=== PATIENT | female | born 1985 | race Caucasian/White ===

== ENCOUNTER 2017-01-04 05:09 | Inpatient (IN) | payer OTHER ==
[~2017-01-04] VITALS: Ht 167.6 cm; Wt 70.3 kg
[2017-01-04] MEDS ORDERED: Sodium Chloride LOK Flush 10 mL Syringe IVFLUSH PRN (06:20)
[2017-01-04] MEDS ORDERED: Lactated Ringer's 1,000 ML IV PRN (06:20)
[2017-01-04] MEDS ORDERED: Methylergonovine 0.2 mg/mL Inj IM PRN (06:20)
[2017-01-04] MEDS ORDERED: Oxytocin 10 Unit/mL Inj IM PRN (06:20)
[2017-01-04] MEDS ORDERED: Hemorrhage Kit, Post Partum XX ONE (06:20)
[2017-01-04] MEDS ORDERED: Carboprost 250 mCg/mL Inj IM PRN (06:20)
[2017-01-04 10:04] LABS: Mean Corpuscular Hemoglobin 28.2 pg (27.0-35.0); Mean Corpuscular Volume 87.6 fL (81-100)
--- NOTE | 2017-01-04 13:26 | PCM.HPOB ---
Subjective Date of Service: Jan 04, 2017 Referring Provider: Admitting Physician: Oral Potter DO Primary Care Physician: Oral Potter DO Attending Physician: Oral Potter DO Chief Complaint Leaking fluids History of Present History of Present Illness 31-year-old SAB 2 at 39w1d by LMP and 8 week ultrasound presents leaking fluids. She notes a gush of clear fluids that began at 0200 today. She slowly began having contractions that developed after rupture of membranes. She presented to the center and rupture of membranes was confirmed with PROM plus testing. She was having contractions, mild to moderate every 6-7 minutes. She has had a small amount of bloody show but no significant vaginal bleeding. Denies headaches or vision changes. No risk factors identified in this . GBS neg Obstetric history: First was a term healthy girl born [birth year] in [place] after induction at 41 weeks, requiring forceps. 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 Surgical history: neg Past medical history: neg Social history: She lives with her Abdias and her daughter Earline and on [place]. She works for an insurance company. She does not smoke or use drugs or consume alcohol. 10 point review of systems is conducted and is negative unless otherwise mentioned above. Genetic Screening/Counseling Genetic Screening/Counseling: Positive Baby father-had child w defect: Yes (VSD repaired as a child) Genetic Screening/Counseling Saw genetic counseling 11/26/15 at the [facility]. They noted that subsequent pregnancies will be at no further risk than usual of having another baby with Lama's syndrome. Allergy Coded Allergies: No Known Allergies (Unverified , 01/04/17) Exam Vital Signs 127/77 78 16 37.3 Exam baseline 125. + accels, no decels, mod btbv. category one contractions every 4-6 min Objective 2 cm, 50%, -2, soft, posterior Constitutional: Well-developed, Well-nourished, Normal habitus HEENT: Atraumatic Lungs: Clear to Auscultation, Clear to Percussion, Normal Air Movement Heart: Exam Unremarkable, Regular Rate/Rhythm, Normal S1, Normal S2 Fundus 39 Abdomen: Gravid, Normal bowel sounds, Soft, No tenderness Extremities: Pulses Palpable x4, Warm Neurological/Psychiatric: Alert, Oriented X3, Cooperative, Mild Distress Neuro: Grossly Neurologically Intact, Reflexes 2+, Normal DTRs Gynecologic: Normal: Adnexa/Parametria, Anus/Perineum, Bladder, Breasts, Cervix , External Genitalia, Rectal, Urethral Meatus, Uterus, Vagina/Pelvic Support Labs/Diagnostics Labs Laboratory Tests 72 Hours Test 01/04/17 05:40 White Blood Count 8.6th/mm3 (3.8-10.1) Red Blood Count 3.87mil/mm3 (3.90-5.20) Hemoglobin 10.9g/dL (12.0-15.6) Hematocrit 33.9% (35.0-46.0) Mean Corpuscular Volume 87.6fL (81-100) Mean Corpuscular Hemoglobin 28.2pg (27.0-35.0) Mean Corpuscular Hemoglobin Concent 32.2% (32.0-37.0) Red Cell Distribution Width 14.0% (12.3-15.4) Platelet Count 191bil/L (150-400) Hold Purple Top Tube Received (Received) Maternal Blood Type: B (pos) Hx Rho(D) Immune Globulin: No Antibody Screen: Neg Group B Strep Results: Negative Previous Infant with GBS: No Rubella: Immune Lab History: Positive for: Hx Chicken Pox, Negative for: Hx Gonorrhea, Hx HIV, Hx Herpes, Hx Syphilis OB Intrapartum Assessment/Plan Assessment Assessment: 1. 31-year-old at 39.5 weeks by LMP and first trimester ultrasound here in active labor with SROM, clear fluids 2. Desires no medications/epidural for pain management, wanting to do labor as natural as possible 3. Reassuring heart tones 4. GBS negative Plan: 1. Expectant management 2. Tobacco Prevention Health Educator helping with labor Problems: (1) Status: Acute ICD Code: Z33.1 Pain Evaluation: Adequate Pain Control Time Spent: 30 min Oral Potter DO Jan 04, 2017 13:02
[2017-01-04] MEDS: Oxytocin 30 Units/500 mL LR 30 UNITS in IV Premix 1 EACH IV PRN ×2 (13:51→16:41)
[2017-01-04] MEDS ORDERED: Lactated Ringer's 1,000 ML IV SCH (14:51)
[2017-01-04] MEDS ORDERED: Benzocaine (Dermoplast) 20% 60 Gm Spray TOPICAL PRN (14:55)
[2017-01-04] MEDS ORDERED: LANOlin HPA 7 Gm Ointment TOPICAL PRN (14:55)
[2017-01-04] MEDS ORDERED: Codeine-APAP 30-300 mg Tablet PO PRN (14:55)
[2017-01-04] MEDS ORDERED: Witch Hazel-Glycerin Pads TOPICAL PRN (14:55)
--- NOTE | 2017-01-04 15:07 | PCM.OBVAG ---
Vaginal Delivery Date of Service Jan 04, 2017 Procedure Obstetical Procedure: Normal Spontaneous Vaginal Delivery, Repair of Perineal Tear (1st degree) Footwear Factory Worker/Subacute Nurse Provider and Subacute Nurse: Cortney Potter DO Indication for Procedure Induction: Active labor, SROM Findings Obstetrical Findings: (Male), Cord (3 Vessel), Weight ( 3786 grams), Weight (8 lbs 5.5 oz), Presentation (ABILIO), 1 minute (9), 5 minutes (9), Placenta (Intact/Normal), Perineal Laceration (1st degree) Analgesia/Medications Obstetrical Anesthesia: Local Procedure Details Procedure Details Patient progressed normally through labor and was complete at 1324. Reassuring heart tones the entire length of the labor. Healthy baby boy with Apgars of 9 and 9 was born at 1340, weighing 8 pounds 5.5 ounces. Patient had a small first-degree laceration was repaired with 3. 0 Vicryl and 1% lidocaine (15 mL's) . Patient tolerated the procedure well. She did not have an epidural or IV pain medication for the entire labor. Placenta delivered at 1344. Uterine fundus was firm and oxytocin was administered. Specimen none Blood Loss & Administration Estimated Blood Loss: 250 Post Procedure Plan Post delivery Condition: Mom stable, Baby stable to nursery copies to: Oral Potter Gary R DO Jan 04, 2017 15:07
[2017-01-05 06:35] LABS: Mean Corpuscular Volume 86.6 fL (81-100)
[2017-01-05] MEDS ORDERED: DOCU-41 PO (13:15)
[2017-01-05] MEDS ORDERED: ACET1TAB42 PO (13:15)
[2017-01-05] MEDS ORDERED: IBUP-1827 PO (13:15)
--- NOTE | 2017-01-05 16:51 | DRSVH ---
PROCEDURE: US PELVIC SONOGRAM INDICATIONS: RO RETAINED PLACENTA TECHNIQUE: Real-time scanning was performed of the pelvic organs, with image documentation. Additional endovagi nal scanning was necessary due to incomplete visualization of the adnexal and endometrial structures by transabdominal scanning. COMPARISON: None. FINDINGS: Transabdominal scanning: Limited scanning through the kidneys shows no hydronephrosis. No pathologi c free abdominal or pelvic fluid. Endovaginal scanning: Uterus: Uterus is normal in size and appearance. Endometrium is thickened measuring up to 15.5 mm a nd there is complex, heterogeneous material noted throughout the endometrium, most notably within the lower uterine segment measuring 5.0 x 3.4 cm in diameter. Doppler assessment demonstrates no hyperv ascularity. Ovaries: Are not visualized. IMPRESSION: Thickened endometrial complex containing avascular complex material likely related to ret ained clot but given the amount of clot present, hidden retained products of conception cannot be exc luded. Recommend clinical correlation and if there is continued clinical suspicion for retained clot , followup ultrasound should be performed. Eva Costello RN (charge Nurse) given results 1700 hrs. 01/05/2017. Dictated by: Gabriel Goetz [facility] Interpreted: Birgit Peguero MD on 01/05/2017 at 16:48 Transcribed by: UNA on 01/05/2017 at 16:51 Approved by: Birgit Peguero MD, PhD on 01/05/2017 at 17:10
--- NOTE | 2017-01-05 18:13 | PCM.DC.OB ---
Obstetrical Discharge Summary Date of Service Jan 05, 2017 Date of hospital admission Jan 04, 2017 at 05:23 Date of Discharge: Jan 05, 2017 Providers Admitting Physician: Oral Rosenbaum DO Primary Care Physician: Oral Rosenbaum DO Attending Physician: Oral Rosenbaum DO Problems: (1) Status: Resolved ICD Code: Z33.1 Invasive procedures none Pathology none Brief History and Physical: 31-year-old SAB 2 at 39w1d by LMP and 8 week ultrasound presents leaking fluids. She notes a gush of clear fluids that began at 0200 today. She slowly began having contractions that developed after rupture of membranes. She presented to the center and rupture of membranes was confirmed with PROM plus testing. She was having contractions, mild to moderate every 6-7 minutes. She has had a small amount of bloody show but no significant vaginal bleeding. Denies headaches or vision changes. No risk factors identified in this . GBS neg Obstetric history: First was a term healthy girl born [birth year] in [place] after induction at 41 weeks, requiring forceps. 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 Surgical history: neg Past medical history: neg Social history: She lives with her Abdias and her daughter Earline and on [place]. She works for an insurance company. She does not smoke or use drugs or consume alcohol. 10 point review of systems is conducted and is negative unless otherwise mentioned above. Hospital Course: Patient delivered a healthy baby boy at 1340 on 01/04/17 via without complications. She had a first-degree perineal laceration that was repaired with 3. 0 Vicryl which the patient tolerated well. her pain was controlled with ibuprofen and occasional Tylenol 3. She was able to ambulate without difficulty and was passing gas, no bowel movement to this point. Her repeat hemoglobin returned at 11.5, which was actually higher than her admission hemoglobin of 10.9. She is feeling very well. Her bleeding is slightly more than a period, she notes she feels a pad about every 4 hours. Has no problems breast-feeding. Just around the time I was planning to discharge her she passed a large 131 g clot. Pelvic ultrasound was ordered which is resulted below: IMPRESSION: Thickened endometrial complex containing avascular complex material likely related to retained clot but given the amount of clot present, hidden retained products of conception cannot be excluded. Recommend clinical correlation and if there is continued clinical suspicion for retained clot, followup ultrasound should be performed. Eva Costello RN (charge Nurse) given results 1700 hrs. 01/05/2017. Dictated by: Gabriel Goetz RRA Interpreted: Birgit Peguero MD on 01/05/2017 at 16:48 Transcribed by: UNA on 01/05/2017 at 16:51 Approved by: Birgit Peguero MD, PhD on 01/05/2017 at 17:10 Discharge physical exam Gen. appearance: No acute distress. Alert and oriented. Well-nourished well- developed. HEENT: Pupils equally round and reactive to light. Mucous membranes moist. Neck: Supple without lymphadenopathy no thyromegaly or nodules appreciated. Heart: regular rate and rhythm without murmur rub or gallop Lungs: Clear to auscultation bilaterally. Abdomen: soft, nontender, uterus is firm, fundus at the level of the umbilicus, nondistended, positive bowel sounds, no hepatosplenomegaly appreciated, no masses Extremities: Without edema, 2 out of 4 distal pulses. Skin: without rash Neuro: No gross deficits of cranial nerves or bilateral upper/lower extremities appreciated. I discussed with the patient that given the large clot that she passed we could consider keeping her overnight to observe for further bleeding and giving her Methergine 0.2 mg by mouth 3 times a day. She is not very concerned about the amount of bleeding. I am confident that the placenta was entirely extracted based on my examination performed after delivery. Given that her bleeding is not excessive other than the clot she passed, and the fact that she has follow- up with me tomorrow morning, I will discharge her here today. She will contact me if she has any significant bleeding above her baseline. I will give her 1 dose of Methergine prior to discharge. Patient is in agreement with this plan. Acetaminophen/Codeine 300-30mg (Acetaminophen/Codeine 300-30mg) 1 Each Tablet 1- 2 TABLET PO Q4H PRN PRN For Pain Prescribed by: ORAL R ANDELIN, DO Docusate Sodium (Colace) 100 Mg Capsule 100 MG PO BID Prescribed by: ORAL ROSENBAUM DO Ibuprofen (Ibuprofen) 600 Mg Tablet 600 MG PO Q6H PRN PRN For Mild Pain Prescribed by: ORAL ROSENBAUM DO Disposition Home Follow-up plan Check in with Dr. Rosenbaum tomorrow at 10:40 AM Schedule visit in 4-6 weeks Discharge Diet: No restrictions Discharge Activity-General: Pelvic Rest, Try not to overdue, Be up and about, Balance rest and activity, Activity as pain allows, Activity as energy allows Patient instructions If you develop heavy bleeding, please seek immediate medical attention Time spent 45 minutes copies to: Oral Rosenbaum Gary R DO Jan 05, 2017 18:13
--- NOTE | 2017-01-05 18:15 | PCM.DIOB ---
Obstetrical Disch Instruction Date of Service: Jan 05, 2017 Dates of Hospitalization Date of Hospital Admission Jan 04, 2017 at 05:23 Providers Admitting Physician: Oral Potter DO Primary Care Physician: Oral Potter DO Attending Physician: Oral Potter DO Discharge Diagnosis Problems: (1) Status: Resolved ICD Code: Z33.1 Diet Discharge Diet: No restrictions Activity Discharge Activity-General: Try not to overdue, Be up and about, Balance rest and activity, Activity as pain allows, Activity as energy allows Dressing and Incisional Care Hygiene: May shower, Perineal care, Sitz bath, Dermoplast spray, Witch Karen pads, Ice Additional Instructions Discharge Instructions If you develop heavy bleeding, please seek immediate medical attention Follow Up Plan Follow Up Plan Check in with Dr. Potter at 1040 tomorrow and schedule post visit in 4- 6 weeks Call your provider for: Fever or Chills, Shortness of breath, Heavy vaginal bleeding, Heavy bleeding, Epigastric pain, Excessive constipation, Vaginal discomfort, Red painful breasts Oral Potter DO Jan 05, 2017 18:15
[2017-01-05 18:26] VITALS: BP 127/77; PULSE 67; RESP 16
== END 2017-01-05 19:15 | disposition home or self-care (01) | DRG 775 ==
LOC: FBCO 05:09 → FBC 05:23
PROVIDERS: ADMIT Emergency Medicine; ATTEND Emergency Medicine
PROC: 10E0XZZ Delivery of Products of Conception, External Approach (ICD-10-PCS; principal; 2017-01-04)
PROC: 0HQ9XZZ Repair Perineum Skin, External Approach (ICD-10-PCS; 2017-01-04)
DX: O42.02 Full-term premature rupture of membranes, onset of labor within 24 hours of rupture (principal); Z3A.39 39 weeks gestation of pregnancy; Z37.0 Single live birth; O70.0 First degree perineal laceration during delivery